=== PATIENT | female | born 1965 | race Caucasian/White ===

== ENCOUNTER → 2019-01-17 | Outpatient (CLI) | payer BC ==
[~2019-01-17] MED LIST: METOPROLOL SUCC25 MG PO
[2019-01-17 16:00] LABS: BLOOD UREA NITROGEN 13 mg/dL (7-26); BUN/CREATININE RATIO 16 (6-25); CREATININE, SERUM 0.81 mg/dL (0.57-1.11); EST GLOMERULAR FILTRATION RATE > 60 ML/MIN (60-)
== END ==
LOC: CT 14:41
PROVIDERS: ATTEND Family Medicine
DX: R14.0 Abdominal distension (gaseous) (principal); K76.0 Fatty (change of) liver, not elsewhere classified
CPT/HCPCS: 36415; 82565; 84520

== ENCOUNTER → 2019-01-18 | Outpatient (CLI) | payer BC ==
[~2019-01-18] MED LIST changes: +DIATRIZOATE MEGL/DIATRIZOA SOD 30 ML BTL PO ONE
--- NOTE | 2019-01-18 13:13 | Diagnostic Imaging Report ---
CT of the abdomen and pelvis, without contrast, 01/18/2019. History: Abdominal bloating. Comparison: None available. Technique: Multidetector CT scanning of the abdomen and pelvis was performed from the level of the lung bases to the inferior pubic rami without intravenous contrast. Or oral contrast was administered. Coronal and sagittal multiplanar reformations were obtained. RADIATION DOSE: Total DLP: 734 mGy*cm Dose modulation, iterative reconstruction, and/or weight based adjustment of the mA/kV was utilized to reduce the radiation dose to as low as reasonably achievable. Discussion: Examination is limited without IV contrast. Lung bases: No visualized abnormalities. Abdomen: There is diffuse low-density of the liver with focal fatty sparing adjacent to the gallbladder. The gallbladder, biliary tree, spleen, pancreas, adrenal glands, and kidneys are unremarkable. The abdominal aorta is within normal limits. Stomach, small bowel, and large bowel are unremarkable. There is no bowel dilatation. There is no evidence of adenopathy or free fluid. Pelvis: The bladder is unremarkable. Uterus and adnexa are absent. There is no evidence of free fluid or adenopathy. Bones and soft tissues: Degenerative changes are present throughout the lumbar spine without evidence of lytic or sclerotic lesion. IMPRESSION: 1. Diffuse fatty infiltration of the liver. 2. Status post hysterectomy. Otherwise unremarkable exam. Signed by: Stanton Barron on 01/18/2019 1:10 PM
== END ==
LOC: CT 10:32
PROVIDERS: ATTEND Family Medicine
DX: R14.0 Abdominal distension (gaseous) (principal)
CPT/HCPCS: 74176

== ENCOUNTER → 2019-02-01 | Outpatient (CLI) | payer BC ==
[~2019-02-01] MED LIST changes: -DIATRIZOATE MEGL/DIATRIZOA SOD 30 ML BTL PO ONE; +NORCO 10-325 T1 EACH PO
--- NOTE | 2019-02-01 19:22 | Diagnostic Imaging Report ---
Hepatobiliary Scan with Gallbladder Ejection Fraction Clinical information: R10.11 RUQ pain Report: Following intravenous administration of 6.2 millicuries of Tc-99m mebrofenin, dynamic images of the abdomen in the anterior projection were obtained through 60 minutes. Sincalide (CCK analog) 2.0 micrograms was administered intravenously over 30 minutes with additional imaging for determination of gallbladder ejection fraction. Perfusion to the liver is normal. Extraction of tracer from the blood pool by the liver parenchyma is mildly prolonged. Tracer is seen promptly within the biliary tract. The gallbladder begins to fill by 22 minutes post-injection of tracer and fills adequately. Tracer is seen in the small bowel by 12 minutes. The gallbladder ejection fraction with administration of sincalide is 100% (normal greater than 40%). Impression: 1. Filling of the gallbladder excludes the diagnosis of acute cystic duct obstruction/acute cholecystitis. 2. Normal gallbladder ejection fraction of 100% does not support the clinical diagnosis of chronic cholecystitis/gallbladder dyskinesia. 3. Mild hepatocyte dysfunction. Signed by: Dr. Cortney Anders M.D. on 02/01/2019 7:19 PM
== END ==
LOC: NM 12:34
PROVIDERS: ATTEND Internal Medicine Gastroenterology
DX: R10.11 Right upper quadrant pain (principal)
CPT/HCPCS: 78227; A9537